=== PATIENT | male | born 1955 | race Caucasian/White ===

== ENCOUNTER 2024-03-02 16:29 | Inpatient (IN) ==
[2024-03-02 19:12] LABS: ABS Basophils 0.1 10^3/uL (0.0-0.1); ABS Eosinophils 0.1 10^3/uL (0.0-0.5); ABS Lymphocytes 2.4 10^3/uL (1.0-4.8); ABS Monocytes 0.5 10^3/uL (0.0-1.1); ABS Neutrophils 4.4 10^3/uL (1.5-7.6); Eosinophil % 1.1 %; Hematocrit 38.5 % (38-53); Hemoglobin 13.5 g/dL (13.2-16.3); Lymphocyte % 31.9 %; Mean Corpuscular Hemoglobin 32.5 pg (27-33); Mean Corpuscular Hgb Conc 35.1 g/dL (31-36); Mean Corpuscular Volume 92.6 fL (80-97); Mean Platelet Volume 8.6 fL (7.5-11.2); Platelet Count 160 10^3/uL (150-450); Red Blood Count 4.16 10^6/uL (4.06-5.63); Red Cell Distribution Width 12.4 % (12-17); White Blood Count 7.4 10^3/uL (3.6-10.2)
[2024-03-02] MEDS: Heparin DRIP 25,000 UNITS BAG 25,000 UNITS/250 ML BAG IV SCH (19:19)
[2024-03-02] MEDS ORDERED: Sulfur Hexaflouride MICROSPHR 25 MG VIAL IV PRN (19:53)
[2024-03-02 20:10] LABS: Creatinine, Serum 0.95 mg/dL (0.67-1.17); eGFR CKD-EPI 87.2 (>60)
[2024-03-02 20:52] LABS: HDL Cholesterol 55.3 mg/dL
[2024-03-02 21:24] LABS: High Sens Troponin Baseline 3388 pg/mL (<20); High Sensitivity Troponin 3 Hr 3388 pg/mL (<20)
[2024-03-03 01:32] LABS: High Sensitivity Troponin 1 Hr 3737 pg/mL (<20)
[2024-03-03 04:20] LABS: Calcium 8.7 mg/dL (8.6-10.3); Creatinine, Serum 0.97 mg/dL (0.67-1.17); Potassium 3.6 mmol/L (3.5-5.0)
[2024-03-03 04:55] LABS: ABS Eosinophils 0.1 10^3/uL (0.0-0.5); ABS Lymphocytes 2.1 10^3/uL (1.0-4.8); ABS Monocytes 0.5 10^3/uL (0.0-1.1); ABS Neutrophils 3.6 10^3/uL (1.5-7.6); ABS Nucleated RBC 0.01 10^3/ul; Eosinophil % 1.9 %; Hematocrit 37.5 % (38-53); Hemoglobin 12.8 g/dL (13.2-16.3); Mean Corpuscular Hemoglobin 31.8 pg (27-33); Mean Corpuscular Hgb Conc 34.1 g/dL (31-36); Mean Corpuscular Volume 93.2 fL (80-97); Nucleated Red Blood Cells % 0.2 %/100WBC (0.0-0.8); Platelet Count 142 10^3/uL (150-450); Red Blood Count 4.02 10^6/uL (4.06-5.63); Red Cell Distribution Width 12.5 % (12-17); White Blood Count 6.4 10^3/uL (3.6-10.2)
[2024-03-03 05:36] LABS: High Sensitivity Troponin 1 Hr 2421 pg/mL (<20)
[2024-03-03] MEDS: Isosorbide Mononit ER 30mg TAB PO ONE (13:26)
[2024-03-03] MEDS: Heparin 5000 UNITS/ML 1 mL VIAL IV PRN (18:58)
[2024-03-04 05:47] VITALS: BP 128/74
[2024-03-04 06:45] LABS: ABS Eosinophils 0.1 10^3/uL (0.0-0.5); ABS Lymphocytes 1.4 10^3/uL (1.0-4.8); ABS Monocytes 0.5 10^3/uL (0.0-1.1); ABS Neutrophils 4.2 10^3/uL (1.5-7.6); Eosinophil % 2.1 %; Hematocrit 37.9 % (38-53); Hemoglobin 13.2 g/dL (13.2-16.3); Lymphocyte % 22.2 %; Mean Corpuscular Hemoglobin 32.6 pg (27-33); Mean Corpuscular Hgb Conc 34.9 g/dL (31-36); Mean Corpuscular Volume 93.2 fL (80-97); Mean Platelet Volume 8.2 fL (7.5-11.2); Platelet Count 130 10^3/uL (150-450); Red Blood Count 4.06 10^6/uL (4.06-5.63); Red Cell Distribution Width 12.3 % (12-17); White Blood Count 6.3 10^3/uL (3.6-10.2)
[2024-03-04 07:25] LABS: Calcium 8.7 mg/dL (8.6-10.3); Creatinine, Serum 1.02 mg/dL (0.67-1.17); eGFR CKD-EPI 80.1 (>60)
== END 2024-03-04 08:05 | disposition short-term general hospital (02) | DRG 280 ==
LOC: ED 16:29 → EDHOLD 18:22 → SUATTDRO 18:22 → MEDTELE 20:59
PROVIDERS: ADMIT Hospitalist; ATTEND Internal Medicine